=== PATIENT | female | born 1945 | race Caucasian/White ===

== ENCOUNTER 2016-10-18 23:08 | Inpatient (IN) | payer OTHER, MEDICARE ==
[2016-10-18] VITALS (8 sets, daily range): BP systolic 74–125; BP diastolic 54–82; PULSE 138–162; RESP 16–18; TEMP 97.8; O2SAT 95–99
[~2016-10-18] VITALS: Ht 170.2 cm; Wt 67.5 kg
[~2016-10-18 23:08] MED LIST: AMIT50TA3 PO; AMLO10TA2 PO; APIX2.5T PO; COMMODE 3-IN-11 MIS; CPMMACHINE; GLIP5TAB8 PO; HYDR-3288 PO; HYDR25TA5 PO; LEVO100T5 PO; MEDR2.5T2 PO; METF500T4 PO; WALKER WHEELS/F1 MIS
[2016-10-18] MEDS ORDERED: AMIODARONE 150 MG/D5W 97 ML BOLUS 10 MINUTES IV ONE ×2 (23:45)
[2016-10-18] MEDS ORDERED: AMIODARONE 450 MG/D5W (EXCEL) 241 ML IV SCH ×2 (23:45)
[2016-10-18] MEDS ORDERED: SODIUM CHLOR 0.9% 1000 ML INJ 1,000 ML IV ONE (23:51)
[2016-10-19] VITALS (46 sets, daily range): BP systolic 96–166; BP diastolic 46–83; PULSE 70–150; RESP 13–35; TEMP 97.7–98.5; O2SAT 90–100
[2016-10-19] MEDS ORDERED: SODIUM CHLORIDE 0.9% FLUSH 5 ML FLUSH IVF PRN
[2016-10-19 00:01] LABS: BASOPHIL # 0.1 TH/MM3 (0-0.2); BASOPHIL % 0.6 % (0.0-2.0); EOSINOPHIL # 0.4 TH/MM3 (0-0.4); EOSINOPHIL % 3.2 % (0.0-4.0); HEMATOCRIT 34.4 % (35.0-46.0); HEMO FLAGS DIFF FINAL; LYMPHOCYTE # 3.1 TH/MM3 (1.0-4.8); MEAN CELL VOLUME 85.4 FL (80.0-100.0); MEAN CORPUSCULAR HEMOGLOBIN 28.4 PG (27.0-34.0); MEAN CORPUSCULAR HGB CONC 33.3 % (32.0-36.0); MONO % 6.8 % (0.0-8.0); NEUT % 64.4 % (16.0-70.0); PLATELET COUNT 285 TH/MM3 (150-450); RED BLOOD COUNT 4.03 MIL/MM3 (4.00-5.30); RED CELL DISTRIBUTION WIDTH 13.6 % (11.6-17.2); WHITE BLOOD COUNT 12.4 TH/MM3 (4.0-11.0)
[2016-10-19 00:09] LABS: CHLORIDE 104 MEQ/L (98-107); POTASSIUM 3.5 MEQ/L (3.5-5.1); SODIUM (NA) 137 MEQ/L (136-145)
--- NOTE | 2016-10-19 00:09 | PD ---
HPI Chief Complaint: syncope Time Seen by Provider: 23:31 Travel History International Travel<30 days: No (unknown) Contact w/Intl Traveler<30days: No (unknown) History of Present Illness HPI 70yo F with PMH of HTN, DM presents to the ED with c/o syncope today. Pt states she was talking to her son and just passed out. Pt has been feeling episodes of warmth and dizziness. Denies any chest pain, sob, n/v, abdominal pain, weakness or numbness. PFSH Past Medical History Arthritis: Yes (JOINTS) Cancer: No Diabetes: Yes Genitourinary: No Musculoskeletal: Yes Neurologic: No Reproductive: No Respiratory: No Past Surgical History Joint Replacement: Yes (HIP) Social History Tobacco Use: No Substance Use: No Allergies-Medications (Allergen,Severity, Reaction): Coded Allergies: Morphine (Verified Allergy, Intermediate, Itching, 10/19/16) Reported Meds & Prescriptions Reported Meds & Active Scripts Active Reported Myrbetriq (Mirabegron) 25 Mg Tab 25 Mg PO DAILY Meloxicam 15 Mg Tab 15 Mg PO DAILY Enalapril (Enalapril Maleate) 20 Mg Tab 20 Mg PO DAILY Medroxyprogesterone Acetate 2.5 Mg Tab 2.5 Mg PO PRN Start day 21 Amitriptyline (Amitriptyline HCl) 50 Mg Tab 50 Mg PO HS Levothyroxine (Levothyroxine Sodium) 100 Mcg Tab 100 Mcg PO DAILY Hydrochlorothiazide 25 Mg Tab 25 Mg PO DAILY Metformin ER (Metformin HCl) 500 Mg Elan 500 Mg PO TID With evening meal Glipizide 5 Mg Tab 5 Mg PO BIDAC Take 30 minutes before a meal Amlodipine (Amlodipine Besylate) 10 Mg Tab 10 Mg PO DAILY Review of Systems Except as stated in HPI: all other systems reviewed are Neg Physical Exam Narrative GENERAL: 70yo F not in distress. SKIN: Warm and dry. HEAD: Atraumatic. Normocephalic. EYES: Pupils equal and round. No scleral icterus. No injection or drainage. ENT: No nasal bleeding or discharge. Mucous membranes pink and moist. NECK: Trachea midline. No JVD. No midline ttp cervical spine. CARDIOVASCULAR: Sinus tachycardic with frequent nonsustained Vtach in the low 200s. RESPIRATORY: No accessory muscle use. Clear to auscultation. Breath sounds equal bilaterally. GASTROINTESTINAL: Abdomen soft, non-tender, nondistended. No rebound tenderness or guarding. MUSCULOSKELETAL: No obvious deformities. No clubbing. No cyanosis. No edema. NEUROLOGICAL: Awake and alert. No obvious cranial nerve deficits. Motor grossly within normal limits. Normal speech. PSYCHIATRIC: Appropriate mood and affect; insight and judgment normal. Data Data Last Documented VS Vital Signs Date Time Temp Pulse Resp B/P Pulse Ox O2 Delivery O2 Flow Rate FiO2 10/19/16 00:45 112 18 135/63 99 Room Air 10/18/16 23:45 97.8 Orders Amiodarone Inj (Cordarone Inj) (10/18/16 23:45) Amiodarone Inj (Cordarone Inj) (10/18/16 23:45) Magnesium Sulfate 1 Gm Premix (Magnesium (10/19/16 00:00) Basic Metabolic Panel (Bmp) (10/18/16 23:51) Complete Blood Count With Diff (10/18/16 23:51) Magnesium (Mg) (10/18/16 23:51) Ckmb (Isoenzyme) Profile (10/18/16 23:51) Troponin I (10/18/16 23:51) Act Partial Throm Time (Ptt) (10/18/16 23:51) Prothrombin Time / Inr (Pt) (10/18/16 23:51) Urinalysis - C+S If Indicated (10/18/16 23:51) Chest, Single Ap (10/18/16 23:51) Ct Brain W/O Iv Contrast(Rout) (10/18/16 23:51) Ecg Monitoring (10/18/16 23:51) Iv Access Insert/Monitor (10/18/16 23:51) Oximetry (10/18/16 23:51) Sodium Chloride 0.9% Flush (Ns Flush) (10/19/16 00:00) Sodium Chlor 0.9% 1000 Ml Inj (Ns 1000 M (10/18/16 23:51) CKMB (10/18/16 23:24) CKMB% (10/18/16 23:24) Potassium Chlor 20 Meq Premix (Kcl 20 Me (10/19/16 00:45) Magnesium Sulfate 1 Gm Premix (Magnesium (10/19/16 00:45) Magnesium Sulfate 1 Gm Premix (Magnesium (10/19/16 00:45) Potassium Chloride (Kcl) (10/19/16 00:45) Admit Order (Ed Use Only) (10/19/16 00:40) Labs Laboratory Tests Test 10/18/16 23:24 White Blood Count 12.4 TH/MM3 Red Blood Count 4.03 MIL/MM3 Hemoglobin 11.4 GM/DL Hematocrit 34.4 % Mean Corpuscular Volume 85.4 FL Mean Corpuscular Hemoglobin 28.4 PG Mean Corpuscular Hemoglobin 33.3 % Concent Red Cell Distribution Width 13.6 % Platelet Count 285 TH/MM3 Mean Platelet Volume 8.6 FL Neutrophils (%) (Auto) 64.4 % Lymphocytes (%) (Auto) 25.0 % Monocytes (%) (Auto) 6.8 % Eosinophils (%) (Auto) 3.2 % Basophils (%) (Auto) 0.6 % Neutrophils # (Auto) 8.0 TH/MM3 Lymphocytes # (Auto) 3.1 TH/MM3 Monocytes # (Auto) 0.8 TH/MM3 Eosinophils # (Auto) 0.4 TH/MM3 Basophils # (Auto) 0.1 TH/MM3 CBC Comment DIFF FINAL Differential Comment Prothrombin Time 11.6 SEC Prothromb Time International 1.0 RATIO Ratio Activated Partial 25.5 SEC Thromboplast Time Sodium Level 137 MEQ/L Potassium Level 3.5 MEQ/L Chloride Level 104 MEQ/L Carbon Dioxide Level 18.8 MEQ/L Anion Gap 14 MEQ/L Blood Urea Nitrogen 17 MG/DL Creatinine 1.30 MG/DL Estimat Glomerular Filtration 41 ML/MIN Rate Random Glucose 199 MG/DL Calcium Level 8.6 MG/DL Magnesium Level 1.3 MG/DL Total Creatine Kinase 107 U/L Creatine Kinase MB 1.5 NG/ML Troponin I LESS THAN 0.02 NG/ML MDM Medical Decision Making Medical Screen Exam Complete: Yes Emergency Medical Condition: Yes Differential Diagnosis Syncope secondary to Vtach vs. other arrhythmia vs. ICH Narrative Course 70yo F with PMH of fast heart beat, HTN, DM, recent left knee replacement (no longer on eliquis) here with syncope. Pt placed on plater hot dip and found to have frequent nonsustained Vtach in the low 200s in between sinus tach at low 110s. Pt feels warm when she is in Vtach and feels better after. Discussed with Dr. Barthelomew and she agree with amiodarone drip. Initially wanted beta avinash but since pt's blood pressure went down to systolic in the 80s, we decided to go with amiodarone. Pt given amiodarone bolus and then drip and Vtach has decreased to couplets. Labs reviewed, mild leukocytosis at 12.4. H/H low at 11.4/34.4. Troponin negative. Magnesium is low at 1.3. Pt empirically given magnesium sulfate 1gm IV before lab returned and another magnesium sulfate 1gm IV ordered. Creatinine 1.3. K: 3.5, pt given IV KCl and cancelled PO KCl because pt became nauseous. Discussed with Dr. Zamora who accepted to ICU but states pt can stay at [facility]. Pt felt nauseous when she lied down to CT scan so zofran given. CT brain negative. Pt complained of pain in bilateral ischial tuberosity when she lies down after the fall so xray pelvis ordered, which is negative. Critical Care Narrative Aggregate critical care time was 60 minutes. Time to perform other separately billable procedures was not included in the critical care time. My time did not include minutes spent treating any other patients simultaneously or on activities that did not directly contribute to the patient's treatment. The services I provided to this patient were to treat and/or prevent clinically significant deterioration that could result in: cardiovascular collapse or . I provided critical care services requiring my management, as noted below: Chart data review, documentation time, medication orders and management, vital sign assessments/reviewing monitor data, ordering and reviewing lab tests, ordering and interpreting/reviewing x-rays and diagnostic studies, care of the patient and discussion of the patient with the admitting physicians. Diagnosis Primary Impression: Wide-complex tachycardia Admitting Information Admitting Physician Requests: Abby Harris DO Oct 19, 2016 00:09
[2016-10-19 00:12] LABS: ANION GAP 14 MEQ/L (5-15); BICARBONATE 18.8 MEQ/L (21.0-32.0)
[2016-10-19 00:14] LABS: APTT (PATIENT) 25.5 SEC (24.3-30.1); BLOOD UREA NITROGEN 17 MG/DL (7-18); MAGNESIUM 1.3 MG/DL (1.5-2.5); PROTHROMBIN TIME - PATIENT 11.6 SEC (9.8-11.6)
[2016-10-19 00:15] LABS: GLOMERULAR FILTRATION RATE 41 ML/MIN (>89)
[2016-10-19 00:18] LABS: CREATINE KINASE 107 U/L (26-192)
[2016-10-19 00:30] LABS: CKMB 1.5 NG/ML (0.5-3.6)
--- NOTE | 2016-10-19 00:41 | RADHPO ---
EXAM DATE/TIME: 10/19/2016 00:01 [facility] COMPARISON: No previous studies available for comparison. INDICATIONS : Syncope. MEDICAL HISTORY : None. SURGICAL HISTORY : None. ENCOUNTER: Initial ACUITY: 1 day PAIN SCORE: 0/10 LOCATION: Bilateral chest FINDINGS: Portable AP view of the chest demonstrates a normal-sized cardiac silhouette. No effusion, consolidat ion, or pneumothorax is visualized. The bones and soft tissues demonstrate no acute abnormality. Ther e is a calcified granuloma in the left upper lobe versus rib calcification. CONCLUSION: No acute cardiopulmonary abnormality is identified. Gregory Clancy MD on October 19, 2016 at 0:38 Board Certified Radiologist. This report was verified electronically.
[2016-10-19] MEDS ORDERED: MAGNESIUM SULFATE 1 GM PREMIX 100 ML IV ONE ×4 (00:45→07:15)
[2016-10-19] MEDS ORDERED: POTASSIUM CHLORIDE 20 MEQ CONTROLLED RELEASE TAB PO ONE (00:45)
[2016-10-19] MEDS ORDERED: POTASSIUM CHLOR 20 MEQ PREMIX 100 ML IV ONE (00:45)
[2016-10-19] MEDS ORDERED: ONDANSETRON HCL 4 MG/2 ML VIAL ONE (00:53)
[2016-10-19] MEDS ORDERED: ONDANSETRON HCL 4 MG/2 ML VIAL IV PUSH ONE (01:00)
--- NOTE | 2016-10-19 01:37 | RADHPO ---
EXAM DATE/TIME: 10/19/2016 00:59 [facility] COMPARISON: No previous studies available for comparison. INDICATIONS : Syncopal episode with loss of consciousness. RADIATION DOSE: 56.71 CTDIvol (mGy) MEDICAL HISTORY : Hypertension. Diabetes. SURGICAL HISTORY : None. ENCOUNTER: Initial ACUITY: 1 day PAIN SCALE: 6/10 LOCATION: cranial TECHNIQUE: Multiple contiguous axial images were obtained of the head. Using automated exposure control and adj ustment of the mA and/or kV according to patient size, radiation dose was kept as low as reasonably a chievable to obtain optimal diagnostic quality images. FINDINGS: CEREBRUM: The ventricles are normal in size. No evidence of midline shift, mass lesion, hemorrhage or acute in farction. No extra-axial fluid collections are seen. POSTERIOR FOSSA: The cerebellum and brainstem demonstrate no abnormality. The 4th ventricle is midline. The cerebell opontine angle is unremarkable. EXTRACRANIAL: There is an air-fluid level there are maxillary sinus. SKULL: The calvaria is intact. No evidence of skull fracture. CONCLUSION: 1. No acute intracranial abnormality is identified. 2. Air-fluid level in the right maxillary sinus. This could indicate acute sinus disease. Gregory Clancy MD on October 19, 2016 at 1:34 Board Certified Radiologist. This report was verified electronically.
[2016-10-19] MEDS ORDERED: MELO-1 PO (02:06)
[2016-10-19] MEDS ORDERED: ENAL20TA PO (02:06)
[2016-10-19] MEDS ORDERED: MIRA25TA PO (02:06)
--- NOTE | 2016-10-19 03:21 | RADHPO ---
EXAM DATE/TIME: 10/19/2016 02:50 [facility] COMPARISON: No previous studies available for comparison. INDICATIONS : Pelvic pain post fall. MEDICAL HISTORY : Hypertension. Diabetes SURGICAL HISTORY : None. ENCOUNTER: Initial ACUITY: 1 day PAIN SCORE: 4/10 LOCATION: Bilateral pelvis FINDINGS: AP view of the pelvis demonstrates undermineralized bones. No fracture or dislocation is identified. There is right hip hardware related to total hip arthroplasty. No hardware failure is appreciated. Th ere is mild sclerosis adjacent to the inferior right sacroiliac joint. There is degenerative disc dis ease at L4-L5 and L5-S1. CONCLUSION: No acute pelvis abnormality is identified. The bones are undermineralized. There is degenerative disc disease in the in inferior lumbar spine. Gregory Clancy MD on October 19, 2016 at 3:18 Board Certified Radiologist. This report was verified electronically.
[2016-10-19 03:39] LABS: GLUCOSE,URINE 250 mg/dL (NEG); KETONE, URINE 15 mg/dL (NEG); NITRITE,URINE NEG (NEG); PH, URINE 5.5 (5.0-8.5)
[2016-10-19 03:48] LABS: BLOOD, URINE MOD (NEG); URINE COLOR YELLOW (YELLW/STRAW); WBC, URINE 0-2 /hpf (0-5)
[2016-10-19 03:49] LABS: COMMENT (UR) CULT NOT INDICATED; CULTURE IF INDICATED CULT NOT INDICATED; SQUAMOUS EPITHELIAL CELL URINE 0-5 /hpf (0-5)
[2016-10-19] MEDS ORDERED: SODIUM CHLORIDE 0.9% FLUSH 5 ML FLUSH IV FLUSH PRN ×2 (05:15→07:15)
[2016-10-19] MEDS ORDERED: ONDANSETRON HCL 4 MG/2 ML VIAL IV PRN ×2 (05:15→07:15)
[2016-10-19] MEDS ORDERED: MISCELLANEOUS NURSING INFORMATION XX SCH ×2 (05:15→07:15)
[2016-10-19] MEDS ORDERED: ACETAMINOPHEN 325 MG TAB PO PRN ×2 (05:15→07:15)
[2016-10-19] MEDS ORDERED: CHLORHEXIDINE GLUCONATE 2 % 1 PACK (2 CLOTHS) TOP PRN ×2 (05:15→07:15)
[2016-10-19] MEDS ORDERED: RESP: ALBUTEROL 2.5 MG/3 ML NEB (PRN) INH (05:15)
[2016-10-19] MEDS: CHLORHEXIDINE GLUCONATE 2 % 1 PACK (2 CLOTHS) TOP SCH (06:09)
[2016-10-19 06:17] LABS: POTASSIUM 3.8 MEQ/L (3.5-5.1)
[2016-10-19 06:21] LABS: BICARBONATE 20.7 MEQ/L (21.0-32.0)
[2016-10-19 06:28] LABS: MAGNESIUM 2.1 MG/DL (1.5-2.5)
--- NOTE | 2016-10-19 07:02 | HHI.HP ---
[facility] Service Critical Care Medicine Primary Care Physician Non-Staff Admission Diagnosis Syncope secondary to arrhythmia, nonsustained Vtach, hypomagnesemia Diagnosis: (1) Wide-complex tachycardia Diagnosis: Principal (2) Low magnesium level Diagnosis: Principal (3) Leukocytosis Diagnosis: Principal (4) Normocytic anemia Diagnosis: Principal (5) Diabetes mellitus Diagnosis: Principal (6) Hard of hearing Diagnosis: Principal (7) Dyslipidemia Diagnosis: Principal (8) Hypothyroidism Diagnosis: Principal (9) OAB (overactive bladder) Diagnosis: Principal (10) Primary localized osteoarthrosis, lower leg Diagnosis: Principal Chief Complaint: Syncope/passed out feeling warm. Third to fourth episode to occur. Travel History International Travel<30 Days: No Contact w/Intl Traveler <30 Da: No Traveled to Known Affected Are: No History of Present Illness 70yo F. Admission 10/19/2016. Past medical history includes tachycardia, HTN, DM, hypothyroidism, depression, osteoarthritis with recent left knee replacement (no longer on eliquis) presents to [facility] ED this is a third fourth episode for this patient where she becomes "flush" and feels that the world is spinning. Upon arrival she was instructed to cardiac monitor technician and was noted to have a white count was tachycardia with a rate in the low 200s in between sinus tach at low 110s. Pt feels warm when she is in Vtach and feels better after once back in sinus tachycardia. Discussed with Dr. Tapia and she agree with amiodarone drip. Pt given amiodarone bolus and then drip and Vtach has decreased to couplets she was noted to have a leukocytosis of 12,000. Anemia 11. Magnesium 1.2. Potassium is slightly low. TSH pending. These all been replaced and have normalized. She was intermittently in a wide complex tachycardia from 2300 until 0200. She has since been in normal sinus rhythm. Denies any chest pain, shortness of breath. Review of Systems Constitutional: COMPLAINS OF: Fatigue, DENIES: Fever, Weight gain, Weight loss Endocrine: DENIES: Abnorml menstrual pattern Eyes: COMPLAINS OF: Blurred vision, Double Vision, DENIES: Eye pain Ears, nose, mouth, throat: DENIES: Tinnitus Respiratory: DENIES: Apneas, Snoring, Shortness of breath Cardiovascular: COMPLAINS OF: Palpitations, Syncope, DENIES: Chest pain, Claudication Gastrointestinal: DENIES: Abdominal pain, Nausea, Vomiting Genitourinary: COMPLAINS OF: Urinary incontinence, DENIES: Urinary frequency Musculoskeletal: COMPLAINS OF: Joint pain Integumentary: DENIES: Rash Hematologic/lymphatic: DENIES: Bruising Immunologic/allergic: DENIES: Eczema Neurologic: DENIES: Abnormal gait Psychiatric: COMPLAINS OF: Anxiety, DENIES: Confusion Past Family Social History Allergies: Coded Allergies: Morphine (Verified Allergy, Intermediate, Itching, 10/19/16) Past Medical History Hard of hearing Depression/anxiety Hypertension Dyslipidemia Osteoarthritis Diabetes mellitus type 2 Hypothyroidism Overactive bladder Past Surgical History Cholecystectomy Right total hip replacement Left total knee replacement Lumbar surgery 2002 and 2006 Reported Medications Active Walker with Front Wheels (Device) 1 Mis Mis 1 Ea .ROUTE DIRECTED Commode 3-in-1 (Device) 1 Mis Mis 1 Ea .ROUTE DIRECTED CPM-Continuous Passive Motion Machine 1 Ea Device 1 Ea .ROUTE DIRECTED Eliquis (Apixaban) 2.5 Mg Tab 2.5 Mg PO BID Eldridge (Hydrocodone-Acetaminophen) 7.5-325 mg Tab 1-2 Tab PO Q6H PRN Reported Medroxyprogesterone Acetate 2.5 Mg Tab 2.5 Mg PO PRN Start day 21 Amitriptyline (Amitriptyline HCl) 50 Mg Tab 50 Mg PO HS Levothyroxine (Levothyroxine Sodium) 100 Mcg Tab 100 Mcg PO DAILY Hydrochlorothiazide 25 Mg Tab 25 Mg PO DAILY Metformin ER (Metformin HCl) 500 Mg Elan 500 Mg PO TID With evening meal Glipizide 5 Mg Tab 5 Mg PO BIDAC Take 30 minutes before a meal Amlodipine (Amlodipine Besylate) 10 Mg Tab 10 Mg PO DAILY Active Ordered Medications Reviewed in EMR Family History Mother and father is noncontributory. Social History Former 1 pack per day tobacco 30 years. Currently uses E cigarettes One glass of wine 2-3 times a week. No IV drug use. Physical Exam Vital Signs Vital Signs Date Time Temp Pulse Resp B/P Pulse Ox O2 Delivery O2 Flow Rate FiO2 10/19/16 05:35 74 23 166/71 98 10/19/16 05:24 76 32 158/79 97 10/19/16 05:22 76 35 160/73 10/19/16 05:05 78 23 141/66 97 10/19/16 04:30 78 18 135/62 97 Room Air 10/19/16 04:00 78 16 145/66 96 Nasal Cannula 2 10/19/16 03:30 86 18 145/72 98 Nasal Cannula 2 10/19/16 03:00 98.1 95 16 127/65 97 Nasal Cannula 10/19/16 02:45 118 20 104/54 95 Nasal Cannula 2 10/19/16 02:40 90 Nasal Cannula 2 10/19/16 02:30 128 18 132/58 95 Room Air 10/19/16 02:15 138 18 141/68 97 Room Air 10/19/16 02:00 128 18 108/83 97 Room Air 10/19/16 01:45 124 18 115/56 95 Room Air 10/19/16 01:25 146 20 131/71 95 Room Air 10/19/16 01:15 136 18 113/58 97 Room Air 10/19/16 01:10 142 18 137/75 96 Room Air 10/19/16 00:55 150 18 122/79 98 Room Air 10/19/16 00:45 112 18 135/63 99 Room Air 10/19/16 00:40 122 18 117/46 100 Room Air 10/19/16 00:30 126 18 139/57 100 Room Air 10/19/16 00:20 116 18 96/65 98 Room Air 10/19/16 00:15 112 18 135/67 99 Room Air 10/19/16 00:10 114 18 119/52 99 Room Air 10/19/16 00:05 110 18 127/63 100 Room Air 10/19/16 00:00 120 18 119/68 99 Room Air 10/18/16 23:55 138 18 110/82 98 Room Air 10/18/16 23:50 152 18 92/59 99 Room Air 10/18/16 23:45 97.8 144 16 90/54 99 Room Air 10/18/16 23:40 150 18 74/57 99 Room Air 10/18/16 23:35 162 18 86/64 95 Room Air 10/18/16 23:30 18 98 Room Air 10/18/16 23:30 99 Room Air 10/18/16 23:25 154 18 112/55 96 Room Air 10/18/16 23:10 97.8 150 18 125/72 96 Room Air Physical Exam GENERAL: 70-year-old female, resting in bed in no acute distress SKIN: Warm and dry. No rash HEAD: Atraumatic. Normocephalic. EYES: Pupils equal and round. No scleral icterus. No injection or drainage. ENT: No nasal bleeding or discharge. Mucous membranes pink and moist. NECK: Trachea midline. No JVD. CARDIOVASCULAR: Regular rate and rhythm. S1, S2. No S4 without murmur RESPIRATORY: Clear to auscultation. Breath sounds equal bilaterally. GASTROINTESTINAL: Abdomen soft, non-tender, nondistended. Hypoactive bowel sounds MUSCULOSKELETAL: Extremities without significant peripheral edema. No obvious deformities. NEUROLOGICAL: Awake and alert. No obvious cranial nerve deficits. Motor grossly within normal limits. Five out of 5 muscle strength in the arms and legs. Normal speech. PSYCHIATRIC: Appropriate mood and affect; insight and judgment normal. Laboratory Laboratory Tests Test 10/18/16 10/19/16 10/19/16 23:24 03:25 05:43 White Blood Count 12.4 Red Blood Count 4.03 Hemoglobin 11.4 Hematocrit 34.4 Mean Corpuscular Volume 85.4 Mean Corpuscular Hemoglobin 28.4 Mean Corpuscular Hemoglobin 33.3 Concent Red Cell Distribution Width 13.6 Platelet Count 285 Mean Platelet Volume 8.6 Neutrophils (%) (Auto) 64.4 Lymphocytes (%) (Auto) 25.0 Monocytes (%) (Auto) 6.8 Eosinophils (%) (Auto) 3.2 Basophils (%) (Auto) 0.6 Neutrophils # (Auto) 8.0 Lymphocytes # (Auto) 3.1 Monocytes # (Auto) 0.8 Eosinophils # (Auto) 0.4 Basophils # (Auto) 0.1 CBC Comment DIFF FINAL Differential Comment Prothrombin Time 11.6 Prothromb Time International 1.0 Ratio Activated Partial 25.5 Thromboplast Time Sodium Level 137 138 Potassium Level 3.5 3.8 Chloride Level 104 106 Carbon Dioxide Level 18.8 20.7 Anion Gap 14 11 Blood Urea Nitrogen 17 15 Creatinine 1.30 1.20 Estimat Glomerular Filtration 41 45 Rate Random Glucose 199 255 Calcium Level 8.6 8.1 Magnesium Level 1.3 2.1 Total Creatine Kinase 107 Creatine Kinase MB 1.5 Troponin I LESS THAN 0.02 LESS THAN 0.02 Urine Color YELLOW Urine Turbidity CLEAR Urine pH 5.5 Urine Specific Mcintyre 1.009 Urine Protein NEG Urine Glucose (UA) 250 Urine Ketones 15 Urine Occult Blood MOD Urine Nitrite NEG Urine Bilirubin NEG Urine Leukocyte Esterase NEG Urine RBC 3-5 Urine WBC 0-2 Urine Squamous Epithelial 0-5 Cells Urine Bacteria NONE Microscopic Urinalysis Comment CULT NOT INDICATED Phosphorus Level 3.2 Result Diagram: 10/18/16 2324 10/19/16 0543 Imaging Last Impressions Pelvis X-Ray 10/19/16 0000 Signed Impressions: Service Date/Time: Wednesday, October 19, 2016 02:50 - CONCLUSION: No acute pelvis abnormality is identified. The bones are undermineralized. There is degenerative disc disease in the in inferior lumbar spine. Gregory Clancy MD Head CT 10/18/16 2351 Signed Impressions: Service Date/Time: Wednesday, October 19, 2016 00:59 - CONCLUSION: 1. No acute intracranial abnormality is identified. 2. Air-fluid level in the right maxillary sinus. This could indicate acute sinus disease. Gregory Clancy MD Chest X-Ray 10/18/162350 Signed Impressions: Service Date/Time: Wednesday, October 19, 2016 00:01 - CONCLUSION: No acute cardiopulmonary abnormality is identified. Gregory Calncy MD Assessment and Plan Assessment and Plan Neuro/Psych: Depression/anxiety Hard of hearing Resume Elavil at 20 mg at night. Acetaminophen for fever/pain as needed She is on Lovenox 50 mg daily at home. This be held. CV: Wide complex tachycardia History of hypertension Dyslipidemia Currently on amiodarone drip after bolus has been performed. Troponin 0.02. 2-D echocardiogram ordered. Goal to Keep potassium greater than 4, magnesium greater than 2. Resume enalapril 20 mg by mouth daily and Norvasc/10 mg daily home dosage As needed Nitropaste labetalol/hydralazine for hypertension. Holding hydrochlorothiazide in light of the lateral abnormality's. Cardiology consulted. Resp: Tobaccoism Nasal cannula to maintain saturations greater than equal to 92% Incentive spirometry while awake As needed bronchodilator therapy Chest x-ray on admission revealed no acute cardiopulmonary findings Currently uses E cigarettes Previously on simvastatin 40 mg by mouth daily. Medication reconciliation GI: Start ADA diet. Pepcid for GI prophylaxis Colace/as needed Senokot for bowel regimen : Gardner for accurate I's and O's in a critically ill patient if indicated Endo: Diabetes mellitus Hypothyroidism Continue Levoxyl at 100 g by mouth daily. Check TSH Sliding-scale insulin with Accu-Cheks before meals/at bedtime to maintain euglycemia. Low regimen. Holding glipizide 5 mg by mouth daily/home medication Renal: Acute kidney injury Creatinine currently 1.2. Monitor urine output closely. Accurate I/o Recheck BMP in a.m. Heme: Leukocytosis Normocytic anemia Monitor CBC daily. Monitor trends ID: Monitor for infection FEN: Hypo-magnesium Hypopotassemia Received 30 mg KCl by mouth and 1 g mag sulfate IV 1. Recheck this afternoon. MSK: Osteoarthritis OOB/PT evaluate and treat Access - Utilize peripheral IV. Central line if indicated Prophylaxis - GI - Pepcid - DVT - SCD/heparin Critical Care: The total critical care time was 65 minutes. Time to perform other separately billable procedures was not included in the critical care time. 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
[2016-10-19] MEDS ORDERED: AMIODARONE 450 MG/D5W (EXCEL) 241 ML IV SCH ×2 (07:11)
[2016-10-19] MEDS ORDERED: HEPARIN SODIUM - SQ 10,000 UNITS/ML VIAL SQ SCH ×2 (07:15→08:00)
[2016-10-19] MEDS ORDERED: AMIODARONE INJ 900 MG in D5W 500 ML (EXCEL BAG) 482 ML IV SCH (07:15)
[2016-10-19] MEDS ORDERED: DEXTROSE 50% IN WATER 50 ML VIAL(D50) IV PUSH PRN (07:15)
[2016-10-19] MEDS ORDERED: RESP: ALBUTEROL 2.5 MG/IPRATROPIUM 0.5 MG NEB (PRN) INH (07:15)
[2016-10-19] MEDS ORDERED: POTASSIUM CHLORIDE 10 MEQ CONTROLLED RELEASE TAB PO ONE (07:15)
[2016-10-19] MEDS ORDERED: SENNOSIDES 8.6 MG TAB PO PRN (07:15)
[2016-10-19] MEDS ORDERED: GLUCAGON 1 MG/ML VIAL OTHER PRN (07:15)
[2016-10-19] MEDS ORDERED: NITROGLYCERIN 2% OINT 1 GM PACKET TOPICAL PRN (07:45)
[2016-10-19] MEDS ORDERED: LABETALOL HCL 100 MG/20 ML VIAL IV PUSH PRN (07:45)
[2016-10-19] MEDS ORDERED: hydrALAZINE HCL 20 MG/ML VIAL IV PUSH PRN (07:45)
[2016-10-19] MEDS ORDERED: MIDAZOLAM 100 MG/ML INJ 100 ML IV SCH (08:00)
[2016-10-19] MEDS: ENALAPRIL MALEATE 10 MG TAB PO SCH ×2 (08:18→23:57)
[2016-10-19] MEDS: PANTOPRAZOLE SODIUM 40 MG VIAL IV SCH (08:19)
[2016-10-19] MEDS: DOCUSATE SODIUM 100 MG CAP PO SCH ×2 (08:19→21:00)
[2016-10-19] MEDS: SODIUM CHLORIDE 0.9% FLUSH 5 ML FLUSH IV FLUSH SCH ×2 (08:19→22:47)
[2016-10-19] MEDS: FAMOTIDINE 20 MG TAB PO SCH ×2 (08:19→22:47)
[2016-10-19] MEDS: LEVOTHYROXINE SODIUM 100 MCG TAB PO SCH (08:19)
[2016-10-19] MEDS ORDERED: MIRABEGRON 25 MG PO SCH (09:00)
[2016-10-19] MEDS ORDERED: SODIUM CHLORIDE 0.9% FLUSH 5 ML FLUSH IV FLUSH SCH (09:00)
[2016-10-19] MEDS: INSULIN NovoLIN REGULAR SUPPLEMENTAL SCALE SQ SCH ×3 (11:33→21:00)
--- NOTE | 2016-10-19 13:03 | RADHPO ---
EXAM DATE/TIME: 10/19/2016 12:13 [facility] COMPARISON: No previous studies available for comparison. INDICATIONS : Syncope. MEDICAL HISTORY : Hypertension. Blurred vision. Hearing loss. Palpitations. Irregular heartbeat. Incontinence. Arth ritis. Diabetes. Anxiety. SURGICAL HISTORY : Cholecystectomy. Left knee surgery. Right hip replacement. Back surgery x 2. ENCOUNTER: Initial ACUITY: 1 day PAIN SCORE: 3/10 LOCATION: Bilateral neck PEAK SYSTOLIC VELOCITIES (cm/sec): ICA/CCA RATIO: Right: 1.7 Left: 1.2 ICA: Right: 128 Left: 96 CCA: Right: 57 Left: 79 ECA: Right: 92 Left: 91 VERTEBRAL: Right: 53 antegrade Left: 63 antegrade Elevated flow velocities and ICA/CCA ratios have been found to correlate with increased degrees of vessel stenosis, calculated as percentage of diameter relative to a normal segment of distal ICA/CCA FINDINGS: RIGHT CAROTID: No significant stenosis is visualized. Moderate plaque. The waveforms are within normal limits. LEFT CAROTID: No significant stenosis is visualized. Moderate plaque. The waveforms are within normal limits. VERTEBRAL ARTERIES: Antegrade flow is seen in both vertebral arteries. MISCELLANEOUS: None. CONCLUSION: There is an approximate 50-60% stenosis of the right internal carotid. No hemodynamically significant stenosis in left carotid artery. Jose Pedraza MD on October 19, 2016 at 13:01 Board Certified Radiologist. This report was verified electronically.
[2016-10-19 13:30] LABS: ALT (GPT) 20 U/L (10-53); AST (GOT) 17 U/L (15-37)
[2016-10-19 13:32] LABS: INDIRECT BILIRUBIN 0.2 MG/DL (0.0-0.8); TOTAL BILIRUBIN ADULT 0.3 MG/DL (0.2-1.0)
[2016-10-19 13:33] LABS: ALKALINE PHOSPHATASE 90 U/L (45-117); CREATINE KINASE 165 U/L (26-192)
[2016-10-19] MEDS ORDERED: diphenhydrAMINE HCL 50 MG/ML VIAL IV SCH (14:30)
[2016-10-19 15:01] LABS: HEMATOCRIT 34.4 % (35.0-46.0); MEAN CELL VOLUME 86.1 FL (80.0-100.0); MEAN CORPUSCULAR HEMOGLOBIN 29.1 PG (27.0-34.0); MEAN CORPUSCULAR HGB CONC 33.8 % (32.0-36.0); PLATELET COUNT 266 TH/MM3 (150-450); RED BLOOD COUNT 3.99 MIL/MM3 (4.00-5.30); RED CELL DISTRIBUTION WIDTH 13.4 % (11.6-17.2); REVIEW FLAG FINAL; WHITE BLOOD COUNT 11.6 TH/MM3 (4.0-11.0)
[2016-10-19 15:18] LABS: APTT (PATIENT) 26.1 SEC (24.3-30.1); PROTHROMBIN TIME - PATIENT 11.4 SEC (9.8-11.6)
[2016-10-19] MEDS: HEPARIN-D5W INJ 250 ML IV SCH (15:31)
[2016-10-19] MEDS: ASPIRIN 325 MG TAB PO SCH (15:34)
--- NOTE | 2016-10-19 15:39 | MB ---
cc: MELISSA BRODERICK MD DATE OF CONSULTATION: 10/19/2016 REASON FOR CONSULTATION VT and syncope. HISTORY OF PRESENT ILLNESS Ms. Berman is a 70-year-old female who does have a history of diabetes. She is somewhat of a poor historian. But with clarification of her son, she has had multiple episodes of weakness and dizziness with exertion since her surgery. This has progressed to the point now of near syncope. Over the last day or so she had at least three episodes of near-syncope and vomiting on exertion. In the emergency room she was noted to have a wide complex tachycardia most consistent with ventricular tachycardia. The patient has been asymptomatic since her hospitalization. She specifically denies any chest pain or shortness of breath. PAST MEDICAL HISTORY Significant for - 1. Hypertension. 2. Hyperlipidemia. 3. Diabetes. 4. Hypothyroidism. 5. Depression. 6. Hard of hearing. PAST SURGICAL HISTORY 1. Cholecystectomy. 2. Right total hip. 3. Left total knee. 4. Lumbar surgery. SOCIAL HISTORY The patient is a former smoker. MEDICATIONS Her outpatient medications include - 1. Eliquis. 2. [place]. 3. Medroxyprogesterone. 4. Amitriptyline. 5. Levothyroxine. 6. Hydrochlorothiazide. 7. Metformin. 8. Glipizide. 9. Amlodipine. FAMILY HISTORY Noncontributory. SOCIAL HISTORY The patient is a former smoker. She occasionally has alcohol. REVIEW OF SYSTEMS Except as mentioned in HPI, all 12 systems are negative. PHYSICAL EXAMINATION VITAL SIGNS: 98.2, 72, 27, 144/64. GENERAL: She is a well-appearing elderly female who is in no apparent distress. NECK: Her neck is free from JVD. LUNGS: The lungs are bilaterally clear to auscultation. CARDIOVASCULAR: She has a normal S1 and S2. I did not appreciate any murmurs, rubs or gallops. ABDOMEN: The abdomen is soft. EXTREMITIES: The extremities are free from edema. Telemetry shows an episode of wide complex tachycardia at 180 beats a minute. LABORATORY VALUES Significant for serial troponins of less than 0.02/0.02. Her creatinine is 1.2 and the hemoglobin is 11.4. EKG shows normal sinus rhythm with nonspecific ST-T wave changes. IMPRESSION V-tach - The patient certainly has multiple cardiovascular risk factors. She is somewhat of a poor historian but her son basically describes weakness that correlates to V-tach with walking. While this did not happen every time she ambulated, it certainly seemed to be correlating and is less concerning for ischemia or an anginal equivalent. In light of this, I am going to start her on heparin. We will continue the amiodarone. The risks, benefits and alternatives to cardiac catheterization were discussed. We will have her transferred to the main hospital for this. She will be at slightly higher risk given her anemia and mild renal insufficiency. Hypertension - The patient's blood pressure is reasonably controlled with her present medications. I will add low-dose beta avinash. Hyperlipidemia - We will check lipids and start her on a statin. Diabetes - This is being managed by the primary team. Melissa Broderick M.D. AJITH/BJF /2:17 PM /3:20 PM ANT
[2016-10-19] MEDS ORDERED: HEPARIN SODIUM - IV 10,000 UNITS/10 ML VIAL IV PRN ×2 (20:45)
[2016-10-19 22:31] LABS: APTT (PATIENT) 30.2 SEC (24.3-30.1)
[2016-10-19] MEDS: ATORVASTATIN 40 MG TAB PO SCH (22:47)
[2016-10-19] MEDS: METOPROLOL TARTRATE 25 MG TAB PO SCH (22:48)
[2016-10-19] MEDS: AMITRIPTYLINE HCL 50 MG TAB PO SCH (23:57)
[2016-10-20] VITALS (22 sets, daily range): BP systolic 107–161; BP diastolic 52–84; PULSE 51–98; RESP 16–18; TEMP 97.4–98.5; O2SAT 97–99
[2016-10-20] MEDS ORDERED: CHLORHEXIDINE GLUCONATE 2 % 1 PACK (2 CLOTHS) TOP SCH (04:00)
[2016-10-20] MEDS: LEVOTHYROXINE SODIUM 100 MCG TAB PO SCH (06:00)
[2016-10-20 06:25] LABS: AUTOMATED NEUTROPHIL # 4.2 TH/MM3 (1.8-7.7); BASOPHIL # 0.1 TH/MM3 (0-0.2); BASOPHIL % 0.8 % (0.0-2.0); EOSINOPHIL # 0.3 TH/MM3 (0-0.4); HEMATOCRIT 30.1 % (35.0-46.0); HEMO FLAGS DIFF FINAL; LYMPH % 30.2 % (9.0-44.0); LYMPHOCYTE # 2.2 TH/MM3 (1.0-4.8); MEAN CELL VOLUME 85.7 FL (80.0-100.0); MEAN CORPUSCULAR HEMOGLOBIN 28.8 PG (27.0-34.0); MEAN CORPUSCULAR HGB CONC 33.6 % (32.0-36.0); MONO % 7.2 % (0.0-8.0); NEUT % 57.8 % (16.0-70.0); PLATELET COUNT 236 TH/MM3 (150-450); RED BLOOD COUNT 3.51 MIL/MM3 (4.00-5.30); RED CELL DISTRIBUTION WIDTH 14.7 % (11.6-17.2); WHITE BLOOD COUNT 7.2 TH/MM3 (4.0-11.0)
[2016-10-20 06:42] LABS: INTERNATIONAL NORMALIZED RATIO 1.1 RATIO; PROTHROMBIN TIME - PATIENT 11.9 SEC (9.8-11.6)
[2016-10-20 06:43] LABS: MAGNESIUM 1.9 MG/DL (1.5-2.5)
[2016-10-20] MEDS: INSULIN NovoLIN REGULAR SUPPLEMENTAL SCALE SQ SCH ×4 (07:00→21:00)
[2016-10-20 07:06] LABS: APTT (PATIENT) 55.6 SEC (24.3-30.1)
[2016-10-20] MEDS: FAMOTIDINE 20 MG TAB PO SCH ×2 (09:49→21:09)
[2016-10-20] MEDS: METOPROLOL TARTRATE 25 MG TAB PO SCH ×2 (09:49→21:08)
[2016-10-20] MEDS: ASPIRIN 325 MG TAB PO SCH (09:50)
[2016-10-20] MEDS: SODIUM CHLORIDE 0.9% FLUSH 5 ML FLUSH IV FLUSH SCH ×2 (09:50→21:00)
[2016-10-20] MEDS: PANTOPRAZOLE SODIUM 40 MG VIAL IV SCH (09:51)
[2016-10-20] MEDS: DOCUSATE SODIUM 100 MG CAP PO SCH ×2 (09:51→21:08)
[2016-10-20] MEDS: ACETAMINOPHEN/HYDROcodone 325 MG/7.5 MG TAB PO PRN ×3 (09:53→19:50)
[2016-10-20] MEDS: SODIUM CHLOR 0.9% 1000 ML INJ 1,000 ML IV SCH (11:00)
--- NOTE | 2016-10-20 12:05 | PD.CARD.PN ---
Subjective Subjective Remarks PT without CV complaints Objective Medications Current Medications Medications (Trade) Dose Ordered Sig/Ron Route Start Time Stop Time Status Last Admin (NS Flush) 2 ml UNSCH PRN IV FLUSH 10/19/16 05:15 (NS Flush) 2 ml BID IV FLUSH 10/19/16 09:00 10/20/16 09:50 (Tylenol) 650 mg Q6H PRN PO 10/19/16 05:15 10/19/16 06:08 (Protonix Inj) 40 mg DAILY IV 10/19/16 09:00 10/20/16 09:51 (Zofran Inj) 4 mg Q6H PRN IV 10/19/16 05:15 Miscellaneous Information 1 Q361D XX 10/19/16 05:15 10/19/16 05:15 (Chlorhexidine 2% Cloth) 3 pack Taper DAILY@04 TOP 10/20/16 04:00 10/16/17 03:59 10/19/16 06:09 (Chlorhexidine 2% Cloth) 3 pack UNSCH PRN TOP 10/19/16 05:15 (Elavil) 50 mg HS PO 10/19/16 21:00 10/19/16 23:57 (Norvasc) 10 mg DAILY PO 10/19/16 09:00 10/20/16 09:49 (Synthroid) 100 mcg DAILY@06 PO 10/19/16 07:30 10/20/16 06:00 Patient Own Medication PT OWN MED: (Mirabeg... DAILY PO 10/19/16 09:00 Hold (D50w (Vial) Inj) 25 ml UNSCH PRN IV PUSH 10/19/16 07:15 (Glucagon Inj) 1 mg UNSCH PRN OTHER 10/19/16 07:15 (Colace) 100 mg BID PO 10/19/16 09:00 10/20/16 09:51 (Senokot) 17.2 mg Q12H PRN PO 10/19/16 07:15 (Vasotec) 10 mg BID PO 10/19/16 09:00 10/19/16 23:57 (Trandate Inj) 5 mg Q1HR PRN IV PUSH 10/19/16 07:45 10/19/16 18:07 (Nitroglycerin 2% Oint) 2 inch Q6HR PRN TOPICAL 10/19/16 07:45 Hydralazine HCl 10 mg 10 mg Q1HR PRN IV PUSH 10/19/16 07:45 (NS 1000 ml Inj) 1,000 ml @ 50 mls/hr Q20H IV 10/19/16 15:00 10/24/16 14:59 (Lipitor) 80 mg HS PO 10/19/16 21:00 10/19/16 22:47 (Aspirin) 325 mg DAILY PO 10/19/16 14:30 10/20/16 09:50 (Lopressor) 25 mg Q12HR PO 10/19/16 21:00 10/20/16 09:49 (Heparin Inj) 5,000 units UNSCH PRN IV 10/19/16 20:45 Heparin Sodium (Porcine) 2500 units 2,500 units UNSCH PRN IV 10/19/16 20:45 10/20/16 00:00 (Heparin-D5W Inj) 250 ml @ 0 mls/hr TITRATE IV 10/19/16 14:45 10/19/16 15:31 ([place] 7.5-325 Mg) 1 tab Q4H PRN PO 10/20/16 01:15 10/20/16 09:53 (Pepcid) 10 mg Q12HR PO 10/20/16 21:00 Vital Signs / I&O Vital Signs Date Time Temp Pulse Resp B/P Pulse Ox O2 Delivery O2 Flow Rate FiO2 10/20/16 10:39 97 21 10/20/16 10:00 58 10/20/16 09:00 62 10/20/16 08:00 52 10/20/16 07:00 55 10/20/16 07:00 97.4 57 17 107/52 98 10/20/16 05:31 98.3 60 16 127/55 99 10/20/16 05:27 57 10/20/16 04:00 57 10/20/16 03:00 57 10/20/16 02:00 57 10/20/16 01:00 61 10/20/16 00:25 98.1 63 16 161/73 98 10/19/16 23:00 77 10/19/16 22:00 73 10/19/16 21:00 78 10/19/16 20:00 97.7 74 16 145/79 99 10/19/16 20:00 74 10/19/16 19:00 74 10/19/16 17:00 76 24 10/19/16 16:02 82 29 143/78 97 10/19/16 16:02 82 10/19/16 15:00 82 29 143/78 10/19/16 14:00 78 30 145/66 10/19/16 14:00 78 10/19/16 13:00 74 28 136/63 10/19/16 12:07 98.2 72 27 144/64 96 I/O 10/19/16 10/19/16 10/19/16 10/20/16 10/20/16 10/20/16 07:00 15:00 23:00 07:00 15:00 23:00 Intake Total 1200 ml 910 ml 240 ml 780 ml Output Total 1000 ml 1800 ml Balance 200 ml -890 ml 240 ml 780 ml Intake Oral 480 ml 240 ml 480 ml IV Total 1200 ml 430 ml 300 ml Output Urine Total 1000 ml 1800 ml Stool Total 0 ml # Voids 1 1 3 # Bowel Movements 1 0 Physical Exam GENERAL: Well developed, well nourished. No acute distress. HEENT: Jugular venous pressure is normal. CHEST: Lungs clear to auscultation bilaterally. Unlabored respiratory effort. CARDIAC: Regular rate and rhythm without S3, S4, or murmur. ABDOMEN: Soft, nontender, no hepatosplenomegaly. Bowel sounds present. EXTREMITIES: No clubbing, cyanosis, or edema. Laboratory Laboratory Tests Test 10/19/16 10/19/16 10/19/16 10/20/16 12:57 14:46 22:11 05:35 Magnesium Level 2.2 MG/DL 1.9 MG/DL Total Bilirubin 0.3 MG/DL Direct Bilirubin 0.1 MG/DL Indirect Bilirubin 0.2 MG/DL Aspartate Amino Transf 17 U/L (AST/SGOT) Alanine Aminotransferase 20 U/L (ALT/SGPT) Alkaline Phosphatase 90 U/L Total Creatine Kinase 165 U/L Troponin I LESS THAN 0.02 NG/ML Total Protein 6.4 GM/DL Albumin 2.9 GM/DL White Blood Count 11.6 TH/MM3 7.2 TH/MM3 Red Blood Count 3.99 MIL/MM3 3.51 MIL/MM3 Hemoglobin 11.6 GM/DL 10.1 GM/DL Hematocrit 34.4 % 30.1 % Mean Corpuscular Volume 86.1 FL 85.7 FL Mean Corpuscular Hemoglobin 29.1 PG 28.8 PG Mean Corpuscular Hemoglobin 33.8 % 33.6 % Concent Red Cell Distribution Width 13.4 % 14.7 % Platelet Count 266 TH/MM3 236 TH/MM3 Mean Platelet Volume 8.2 FL 8.4 FL Prothrombin Time 11.4 SEC 11.9 SEC Prothromb Time International 1.0 RATIO 1.1 RATIO Ratio Activated Partial 26.1 SEC 30.2 SEC 55.6 SEC Thromboplast Time Neutrophils (%) (Auto) 57.8 % Lymphocytes (%) (Auto) 30.2 % Monocytes (%) (Auto) 7.2 % Eosinophils (%) (Auto) 4.0 % Basophils (%) (Auto) 0.8 % Neutrophils # (Auto) 4.2 TH/MM3 Lymphocytes # (Auto) 2.2 TH/MM3 Monocytes # (Auto) 0.5 TH/MM3 Eosinophils # (Auto) 0.3 TH/MM3 Basophils # (Auto) 0.1 TH/MM3 CBC Comment DIFF FINAL Differential Comment Phosphorus Level 2.1 MG/DL Test 10/20/16 06:00 Lactic Acid Level 0.8 mmol/L Assessment and Plan Assessment and Plan Syncope- with exertion VT-Angina- no further episodes on heparin, amio and metoprolol, -amio stopped for bradycardia -VT, weakness and nausea on exertion -cath in am HTN- controlled Anemia- chronic/life long 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
[2016-10-20] MEDS: ENALAPRIL MALEATE 10 MG TAB PO SCH ×2 (12:18→21:08)
[2016-10-20 12:31] LABS: APTT (PATIENT) 57.4 SEC (24.3-30.1)
--- NOTE | 2016-10-20 13:07 | EKG ---
Date Performed: 10/18/2016 Time Performed: 23:18:32 PTAGE: 70 years EKG: Atrial fibrillation with rapid ventricular response Left bundle branch block When compared to previous tracing, there is now evidence of Atrial fibrillation with a rapid ventricular response a nd left bundle Branch block. Abnormal ECG PREVIOUS TRACING : 07/22/2016 07.13 DOCTOR: Stevo Agudelo Interpretating Date/Time 10/20/2016 13:06:20
--- NOTE | 2016-10-20 13:08 | EKG ---
Date Performed: 10/19/2016 Time Performed: 06:15:44 PTAGE: 70 years EKG: Sinus rhythm with PVC(s) with borderline 1st degree A-V block. Prolonged QT interval Anterior T wave changes are nonspecific When compared to previous tracing, previously noted atrial Fibrillation is no longer pres ent. Borderline ECG PREVIOUS TRACING : 10/18/2016 23.18.32 DOCTOR: Stevo Agudelo Interpretating Date/Time 10/20/2016 13:08:17
--- NOTE | 2016-10-20 13:11 | EKG ---
Date Performed: 10/19/2016 Time Performed: 13:02:52 PTAGE: 70 years EKG: Sinus rhythm with borderline 1st degree A-V block. Prolonged QT interval Inferior and ant/septal T wave changes a re nonspecific When compared to previous tracing, minor ST changes are noted. Borderline ECG PREVIOUS TRACING : 10/19/2016 06.15 DOCTOR: Stevo Agudelo Interpretating Date/Time 10/20/2016 13:09:34
--- NOTE | 2016-10-20 13:12 | EKG ---
Date Performed: 10/19/2016 Time Performed: 17:12:40 PTAGE: 70 years EKG: Sinus rhythm . Left bundle branch block When compared to previous tracing, there is now an incomplete Left bundle branch block. Abnormal ECG PREVIOUS TRACING : 10/19/2016 13.02 DOCTOR: Stevo Agudelo Interpretating Date/Time 10/20/2016 13:10:32
[2016-10-20 14:27] LABS: ALKALINE PHOSPHATASE 87 U/L (45-117); ALT (GPT) 21 U/L (10-53); ANION GAP 13 MEQ/L (5-15); AST (GOT) 19 U/L (15-37); BICARBONATE 19.4 MEQ/L (21.0-32.0); BLOOD UREA NITROGEN 13 MG/DL (7-18); CHLORIDE 106 MEQ/L (98-107); GLOMERULAR FILTRATION RATE 50 ML/MIN (>89); LDL CHOLESTEROL 75 MG/DL (0-99); POTASSIUM 3.8 MEQ/L (3.5-5.1); SODIUM (NA) 138 MEQ/L (136-145); TOTAL BILIRUBIN ADULT 0.3 MG/DL (0.2-1.0)
[2016-10-20] MEDS: HEPARIN-D5W INJ 250 ML IV SCH (16:54)
[2016-10-20] MEDS ORDERED: MAGNESIUM SULFATE 1 GM PREMIX 100 ML IV ONE (18:30)
[2016-10-20] MEDS ORDERED: POTASSIUM CHLORIDE 20 MEQ CONTROLLED RELEASE TAB PO ONE (18:30)
--- NOTE | 2016-10-20 18:37 | HHI.PR ---
Subjective Remarks Late entry. Patient seen this morning around 11:30 AM. Is feeling all right. Denies any chest pain or shortness of breath. Denies any nausea or vomiting. Says she is ready for cardiac catheterization as planned by cardiology tomorrow. Objective Vital Signs Date Time Temp Pulse Resp B/P Pulse Ox O2 Delivery O2 Flow Rate FiO2 10/20/16 17:00 56 10/20/16 16:00 53 10/20/16 15:00 52 10/20/16 15:00 97.8 59 18 134/61 98 10/20/16 14:00 53 10/20/16 13:00 55 10/20/16 12:00 54 10/20/16 11:00 51 10/20/16 11:00 97.9 55 17 135/58 97 10/20/16 10:39 97 21 10/20/16 10:00 58 10/20/16 09:00 62 10/20/16 08:00 52 10/20/16 07:00 55 10/20/16 07:00 97.4 57 17 107/52 98 10/20/16 05:31 98.3 60 16 127/55 99 10/20/16 05:27 57 10/20/16 04:00 57 10/20/16 03:00 57 10/20/16 02:00 57 10/20/16 01:00 61 10/20/16 00:25 98.1 63 16 161/73 98 10/19/16 23:00 77 10/19/16 22:00 73 10/19/16 21:00 78 10/19/16 20:00 97.7 74 16 145/79 99 10/19/16 20:00 74 10/19/16 19:00 74 I/O 10/19/16 10/19/16 10/19/16 10/20/16 10/20/16 10/20/16 07:00 15:00 23:00 07:00 15:00 23:00 Intake Total 1200 ml 910 ml 240 ml 780 ml Output Total 1000 ml 1800 ml Balance 200 ml -890 ml 240 ml 780 ml Intake Oral 480 ml 240 ml 480 ml IV Total 1200 ml 430 ml 300 ml Output Urine Total 1000 ml 1800 ml Stool Total 0 ml # Voids 1 1 3 # Bowel Movements 1 0 Result Diagram: 10/20/16 0535 10/20/16 0535 Objective Remarks GENERAL: Patient sitting up on edge of bed. Appears comfortable. Alert and oriented 3. SKIN: Warm and dry. HEAD: Normocephalic. EYES: No scleral icterus. No injection or drainage. NECK: Supple, trachea midline. No JVD. CARDIOVASCULAR: Regular rate and rhythm without murmurs, gallops, or rubs. RESPIRATORY: Breath sounds equal bilaterally. No accessory muscle use. GASTROINTESTINAL: Abdomen soft, non-tender, nondistended. MUSCULOSKELETAL: No cyanosis, or edema. BACK: Nontender without obvious deformity. No CVA tenderness. A/P Assessment and Plan //Wide complex tachycardia -Appears to have resolved after amiodarone drip. Holding amiodarone subsequently due to bradycardia. -Troponins negative -Goal to Keep potassium greater than 4, magnesium greater than 2. -Echocardiogram ordered and pending. -Cardiology following. Appreciate assistance. Cardiac catheterization tomorrow. //History of hypertension. Blood pressure acceptable. Continue medications as ordered. Monitor blood pressure. -Holding hydrochlorothiazide. Continue amlodipine. //Dyslipidemia. Chronic. Continue statin //Tobaccoism-cessation counseling provided. Cessation strongly advised. //Diabetes mellitus. Chronic. -A1c ordered and pending. -Hold metformin and glipizide. -2/5. Glucose elevated in the 200s. Into new insulin sliding scale. Decrease diabetic diet 1800 lawanda. Start Levemir 5 units twice daily continue to monitor closely //Hypothyroidism. Chronic.Continue Levoxyl at 100 g by mouth daily. Check TSH //Acute kidney injury. Creatinine 1.3 on admission. Improving. -Follow renal function. //Leukocytosis. On admission. Possibly secondary to stress. Continue to monitor for signs of infection. //Normocytic anemia. Mild. Appears to be chronic. No signs of bleeding. Continue to monitor. //Hypokalemia. Replaced. Keep above 4.0 monitor. //Hypophosphatemia. Replace. Monitor. //Hypomagnesemia. Magnesium 1.3 on admission. Resolved after replacement. Monitor. //Depression/anxiety-chronic. Continue home medications. //Prophylaxis - GI - Pepcid - DVT - SCD/heparin Discharge Planning Physical therapy evaluation pending Expect patient may discharge home. When cleared by cardiology. Jabier Prado MD Oct 20, 2016 18:37
[2016-10-20] MEDS ORDERED: POTASSIUM PHOSPHATE INJ 15 MMOL in SODIUM CHLORIDE 0.9% INJ 150 ML IV ONE (20:00)
[2016-10-20] MEDS: INSULIN DETEMIR 100 UNITS/ML VIAL SQ SCH (21:00)
[2016-10-20] MEDS: ATORVASTATIN 40 MG TAB PO SCH (21:08)
[2016-10-20] MEDS: AMITRIPTYLINE HCL 50 MG TAB PO SCH (21:21)
[2016-10-21] VITALS (14 sets, daily range): BP systolic 129–141; BP diastolic 59–63; PULSE 54–73; RESP 18; TEMP 98.1–98.5; O2SAT 96–97
[2016-10-21] MEDS: CHLORHEXIDINE GLUCONATE 2 % 1 PACK (2 CLOTHS) TOP SCH (04:00)
[2016-10-21] MEDS: LEVOTHYROXINE SODIUM 100 MCG TAB PO SCH (04:57)
[2016-10-21] MEDS: ACETAMINOPHEN/HYDROcodone 325 MG/7.5 MG TAB PO PRN ×2 (04:58→16:32)
[2016-10-21 05:00] LABS: AUTOMATED NEUTROPHIL # 5.3 TH/MM3 (1.8-7.7); BASOPHIL # 0.1 TH/MM3 (0-0.2); BASOPHIL % 0.8 % (0.0-2.0); EOSINOPHIL # 0.4 TH/MM3 (0-0.4); HEMATOCRIT 32.3 % (35.0-46.0); HEMO FLAGS DIFF FINAL; LYMPHOCYTE # 2.7 TH/MM3 (1.0-4.8); MEAN CELL VOLUME 86.4 FL (80.0-100.0); MEAN CORPUSCULAR HEMOGLOBIN 28.8 PG (27.0-34.0); MEAN CORPUSCULAR HGB CONC 33.4 % (32.0-36.0); MONO % 6.9 % (0.0-8.0); NEUT % 58.3 % (16.0-70.0); PLATELET COUNT 242 TH/MM3 (150-450); RED BLOOD COUNT 3.75 MIL/MM3 (4.00-5.30); RED CELL DISTRIBUTION WIDTH 14.8 % (11.6-17.2); WHITE BLOOD COUNT 9.1 TH/MM3 (4.0-11.0)
[2016-10-21 05:14] LABS: APTT (PATIENT) 46.9 SEC (24.3-30.1)
[2016-10-21 05:25] LABS: MAGNESIUM 2.1 MG/DL (1.5-2.5); POTASSIUM 4.1 MEQ/L (3.5-5.1)
[2016-10-21] MEDS: INSULIN NovoLIN REGULAR SUPPLEMENTAL SCALE SQ SCH ×3 (07:00→16:00)
[2016-10-21] MEDS: SODIUM CHLOR 0.9% 1000 ML INJ 1,000 ML IV SCH (07:00)
[2016-10-21] MEDS: SODIUM CHLORIDE 0.9% FLUSH 5 ML FLUSH IV FLUSH SCH (08:07)
[2016-10-21] MEDS: DOCUSATE SODIUM 100 MG CAP PO SCH (08:07)
[2016-10-21] MEDS: ASPIRIN 325 MG TAB PO SCH (08:07)
[2016-10-21] MEDS: METOPROLOL TARTRATE 25 MG TAB PO SCH (08:08)
[2016-10-21] MEDS: FAMOTIDINE 20 MG TAB PO SCH (08:08)
[2016-10-21] MEDS: INSULIN DETEMIR 100 UNITS/ML VIAL SQ SCH (08:08)
[2016-10-21] MEDS: PANTOPRAZOLE SODIUM 40 MG VIAL IV SCH (08:08)
[2016-10-21] MEDS: ENALAPRIL MALEATE 10 MG TAB PO SCH (08:08)
[2016-10-21] MEDS ORDERED: HEPARIN-NS/PF INJ 500 ML ONE (08:22)
[2016-10-21] MEDS ORDERED: MIDAZOLAM HCL 2 MG/2 ML VIAL ONE (08:24)
[2016-10-21] MEDS ORDERED: diphenhydrAMINE HCL 50 MG/ML VIAL ONE (08:47)
[2016-10-21] MEDS ORDERED: SODIUM CHLOR 0.9% 1000 ML INJ 1,000 ML IV SCH (09:10)
[2016-10-21] MEDS ORDERED: METOCLOPRAMIDE HCL 10 MG/2 ML VIAL IV PRN (09:15)
[2016-10-21] MEDS ORDERED: ATROPINE SULFATE 1 MG/ML VIAL IV PRN (09:15)
[2016-10-21] MEDS ORDERED: LIDOCAINE HCL 1% 50 ML VIAL INFIL PRN (09:15)
[2016-10-21] MEDS ORDERED: LORazepam 2 MG/ML VIAL IV PRN (09:15)
[2016-10-21] MEDS ORDERED: SODIUM CHLOR 0.9% 250 ML INJ 250 ML IV PRN (09:15)
[2016-10-21] MEDS ORDERED: ONDANSETRON HCL 4 MG/2 ML VIAL IV PRN (09:15)
[2016-10-21] MEDS ORDERED: BACITRACIN OINT 0.9 GM PKT TOP ONE (09:15)
[2016-10-21] MEDS ORDERED: SODIUM CHLORIDE 0.9% FLUSH 5 ML FLUSH IVF PRN (09:15)
[2016-10-21] MEDS ORDERED: MISC INFORMATION XX ONE (09:15)
--- NOTE | 2016-10-21 09:44 | MA ---
cc: MELISSA BRODERICK MD DATE 10/21/2016 INDICATION VT/angina. PROCEDURE Left heart catheterization, selective coronary angiography, left ventriculography. DETAILS OF THE PROCEDURE The patient was given informed consent. She was prepped in the usual sterile fashion. A subcutaneous injection of lidocaine was made in the right inguinal area. Access was achieved into the right femoral artery and a 4-Malagasy sheath was inserted. A JL-4 and 3DRC were utilized to engage the left and right coronary arteries. Angiograms were obtained in multiple views and projections. An angled 4-Malagasy pigtail catheter was utilized for the left ventriculogram and hemodynamics. The patient tolerated the procedure well and was pain-free at the end of the case. FINDINGS LEFT VENTRICULOGRAM - This shows an EF of 50%. There are no focal wall motion abnormalities. Left ventricular pressure 164/22 mmHg. Aortic pressure 164/62 mmHg. CORONARY ANATOMY Left Main - This vessel is angiographically patent and gives rise to an LAD and circumflex. LAD - This vessel is widely patent and gives rise to an early first diagonal that is also widely patent. Both vessels taper down quickly and are relatively small or atrophic, being about 1.4 mm at the midvessel. They are also severely tortuous. Circumflex - This is a smaller nondominant vessel that is free of any significant disease. RCA - This is a dominant vessel that is free of any significant disease but also fairly tortuous with a lai's hook takeoff. IMPRESSIONS 1. Low-normal LV function. 1. No coronary artery disease, however, vessels are quite small and very tortuous. Jennie Will /9:10 AM /9:37 AM
--- NOTE | 2016-10-21 11:54 | EKG ---
Date Performed: 10/20/2016 Time Performed: 10:27:40 PTAGE: 70 years EKG: SINUS BRADYCARDIA WITH FIRST DEGREE AV BLOCK ANTEROSEPTAL MYOCARDIAL INFARCTION , OF INDETE RMINATE AGE ABNORMAL ECG PREVIOUS TRACING : 10/19/2016 17.12 DOCTOR: Hansel Friedman Interpretating Date/Time 10/21/2016 11:48:50
[2016-10-21 13:21] LABS: HEMOGLOBIN A1a 1.1 %; HEMOGLOBIN A1b 2.6 %; HEMOGLOBIN Ao 79.6 %; HEMOGLOBIN LA1C 2.1 %; HEMOGLOBIN P3 4.5 %
[2016-10-21] MEDS ORDERED: IODIXANOL 320 MG/ML 100 ML VIAL (for Cath Lab) OTHER ONE (13:26)
[2016-10-21] MEDS ORDERED: METOPROLOL TARTRATE 25 MG TAB PO ONE (15:45)
[2016-10-21] MEDS ORDERED: HYDR25TA5 PO (15:46)
[2016-10-21] MEDS ORDERED: FAMO20TA2 PO (15:46)
[2016-10-21] MEDS ORDERED: METO25TA3 PO (15:54)
[2016-10-21] MEDS ORDERED: GLIP5TAB8 PO (15:54)
[2016-10-21] MEDS ORDERED: MAGN400T2 PO (15:57)
--- NOTE | 2016-10-21 19:01 | EC ---
Study Study Date:10/21/2016 STUDY CONCLUSIONS SUMMARY - Left ventricle: The cavity size was normal. Wall thickness was normal. Systolic function was mildly reduced. The estimated ejection fraction was in the range of 45% to 50%. Wall motion was normal; there were no regional wall motion abnormalities. - Ventricular septum: Septal motion showed abnormal function. These changes are consistent with a left bundle branch block. - Mitral valve: Mildly calcified annulus. - Pulmonary arteries: PA peak pressure: 42mm Hg (S). If LV function is below 40, please consider prescribing an ACEI or ARB or document rationale for non-use. PROCEDURE DATA STUDY STATUS: Elective. Procedure: Transthoracic echocardiography. Image quality was suboptimal. Scanning was performed from the parasternal, apical, and subcostal acoustic windows. Study completion: The patient tolerated the procedure well. Transthoracic echocardiography. M-mode, complete 2D, complete spectral Doppler, and color Doppler. Patient status: Inpatient. CARDIAC ANATOMY LEFT VENTRICLE: The cavity size was normal. Wall thickness was normal. Systolic function was mildly reduced. The estimated ejection fraction was in the range of 45% to 50%. Wall motion was normal; there were no regional wall motion abnormalities. AORTIC VALVE: Trileaflet; normal thickness leaflets. Doppler: Transvalvular velocity was within the normal range. There was no stenosis. No regurgitation. AORTA: Aortic root: The aortic root was normal in size. MITRAL VALVE: Mildly calcified annulus. Doppler: Transvalvular velocity was within the normal range. There was no evidence for stenosis. Trace regurgitation. LEFT ATRIUM: The atrium was normal in size. RIGHT VENTRICLE: The cavity size was normal. Wall thickness was normal. VENTRICULAR SEPTUM: Septal motion showed abnormal function. These changes are consistent with a left bundle branch block. PULMONIC VALVE: Doppler: Transvalvular velocity was within the normal range. There was no evidence for stenosis. No regurgitation. TRICUSPID VALVE: Structurally normal valve. Doppler: Transvalvular velocity was within the normal range. Trace regurgitation. PULMONARY ARTERY: The main pulmonary artery was normal-sized. Systolic pressure was within the normal range. RIGHT ATRIUM: The atrium was normal in size. PERICARDIUM: There was no pericardial effusion. SYSTEMIC VEINS: Inferior vena cava: The vessel was normal in size. BASIC MEASUREMENTS ADULT NORMAL Left ventricle LV internal dimension, ED, chordal level, *37 mm 43-52 PLAX LV internal dimension, ES, chordal level, 31.7 mm 23-38 PLAX Fractional shortening, chordal level, PLAX *14 % >29 LV posterior wall thickness, ED 8.29 mm IVS/LVPW ratio, ED 1.11 <1.3 Ventricular septum Septal thickness, ED 9.19 mm Aortic valve Leaflet separation 18 mm 15-26 Right ventricle RV internal dimension, ED, PLAX 20.8 mm 19-38 BASIC MEASUREMENTS ADULT NORMAL Aortic valve Leaflet separation 18 mm 15-26 Aorta Root diameter, ED 29 mm 20-37 Left atrium Anterior-posterior dimension, ES 30 mm 19-40 LA/aortic root ratio 1.03 DOPPLER MEASUREMENTS ADULT NORMAL Main pulmonary artery Pressure, S *42 mm Hg =30 Mitral valve Peak E-wave velocity 57.3 cm/s Peak A-wave velocity 55.3 cm/s Peak E/A ratio 1 Tricuspid valve Regurgitant peak velocity 284 cm/s Peak RV-RA gradient, S 32 mm Hg Maximal regurgitant velocity 284 cm/s Systemic veins Estimated CVP 10 mm Hg Right ventricle RV pressure, S *42 mm Hg <30 LEGEND: Mean values are shown as u=mean value. Asterisk (*) sterling values outside specified normal range. Prepared and signed by Thomas Gibson [id number]
[2016-10-21] MEDS ORDERED: SODIUM CHLORIDE 0.9% FLUSH 5 ML FLUSH IVF SCH (21:00)
--- NOTE | 2016-10-22 06:44 | HHI.PR ---
Subjective Remarks Date of service 10/21/16. Patient seen the morning of 10/21/16 Patient says she feels well. Denies any chest pain or shortness of breath. She feels like going home. Discussed with cardiology. Patient stable for discharge home. Objective Vital Signs Date Time Temp Pulse Resp B/P Pulse Ox O2 Delivery O2 Flow Rate FiO2 10/21/16 18:00 60 10/21/16 17:00 59 10/21/16 16:00 55 10/21/16 15:00 98.4 61 18 137/62 96 10/21/16 15:00 73 10/21/16 14:00 66 10/21/16 13:00 65 10/21/16 12:00 57 10/21/16 11:00 98.5 57 18 141/63 96 10/21/16 11:00 64 10/21/16 10:00 58 10/21/16 08:00 54 10/21/16 07:15 98.4 56 18 129/59 97 10/21/16 07:15 54 I/O 10/21/16 10/21/16 10/21/16 10/22/16 10/22/16 10/22/16 07:00 15:00 23:00 07:00 15:00 23:00 Intake Total 871 ml 600 ml Balance 871 ml 600 ml Intake Oral 420 ml 600 ml IV Total 451 ml # Voids 3 4 # Bowel Movements 0 Result Diagram: 10/21/16 0448 10/21/16 0448 Objective Remarks GENERAL: Patient sitting up in chair. Appears comfortable. Alert and oriented 3. SKIN: Warm and dry. HEAD: Normocephalic. EYES: No scleral icterus. No injection or drainage. NECK: Supple, trachea midline. No JVD. CARDIOVASCULAR: Regular rate and rhythm without murmurs, gallops, or rubs. RESPIRATORY: Breath sounds equal bilaterally. No accessory muscle use. GASTROINTESTINAL: Abdomen soft, non-tender, nondistended. MUSCULOSKELETAL: No cyanosis, or edema. BACK: Nontender without obvious deformity. No CVA tenderness. A/P Assessment and Plan //Wide complex tachycardia -Appears to have resolved after amiodarone drip. Holding amiodarone subsequently due to bradycardia. -Troponins negative -Goal to Keep potassium greater than 4, magnesium greater than 2. -Echocardiogram ordered and pending. -Cardiology following. Appreciate assistance. Cardiac catheterization without significant coronary artery disease - //History of hypertension. Blood pressure acceptable. Continue medications as ordered. Monitor blood pressure. -Can restart hydrochlorothiazide at lower dose. Continue amlodipine. //Dyslipidemia. Chronic. Continue statin //Tobaccoism-cessation counseling provided. Cessation strongly advised. //Diabetes mellitus. Chronic. -A1c 9.6. -Hold metformin and glipizide. -10/20. Glucose elevated in the 200s. Into new insulin sliding scale. Decrease diabetic diet 1800 lawanda. Start Levemir 5 units twice daily continue to monitor closely -10/21. We will increase glipizide to 10 mg twice daily. Patient will need to follow-up with primary care for further treatment of her diabetes. //Hypothyroidism. Chronic.Continue Levoxyl at 100 g by mouth daily. Check TSH //Acute kidney injury. Creatinine 1.3 on admission. Improved. -Follow up with primary care. //Leukocytosis. On admission. Possibly secondary to stress. Continue to monitor for signs of infection. //Normocytic anemia. Mild. Appears to be chronic. No signs of bleeding. Continue to monitor. //Hypokalemia. Resolved after replacement. Likely secondary to hypomagnesemia. Keep above 4.0 monitor. //Hypophosphatemia. Resolved after replacement. Monitor. //Hypomagnesemia. Magnesium 1.3 on admission. Resolved after replacement. Sent home with magnesium daily supplement. //Depression/anxiety-chronic. Continue home medications. //Prophylaxis - GI - Pepcid - DVT - SCD/heparin Discharge Planning -cleared by cardiology for discharge. Discharge home. Follow up cardiology in 2 weeks.. Jabier Prado MD Oct 22, 2016 06:44
--- NOTE | 2016-10-22 06:46 | HHI.DS ---
Discharge Summary Admission Date Oct 19, 2016 at 00:47 Discharge Date: Oct 21, 2016 Admitting Diagnosis Syncope secondary to arrhythmia, nonsustained Vtach, hypomagnesemia (1) Wide-complex tachycardia ICD Code: I47.2 Diagnosis: Principal (2) Low magnesium level ICD Code: R79.0 Diagnosis: Principal (3) Leukocytosis ICD Code: D72.829 Diagnosis: Principal (4) Normocytic anemia ICD Code: D64.9 Diagnosis: Principal (5) Diabetes mellitus ICD Code: E11.9 Diagnosis: Principal (6) Hard of hearing ICD Code: H91.90 Diagnosis: Principal (7) Dyslipidemia ICD Code: E78.5 Diagnosis: Principal (8) Hypothyroidism ICD Code: E03.9 Diagnosis: Principal (9) OAB (overactive bladder) ICD Code: N32.81 Diagnosis: Principal (10) Primary localized osteoarthrosis, lower leg ICD Code: M17.10 Diagnosis: Principal Procedures cardiac catheterization. Please see report. Brief History - From Admission 70yo F. Admission 10/19/2016. Past medical history includes tachycardia, HTN, DM, hypothyroidism, depression, osteoarthritis with recent left knee replacement (no longer on eliquis) presents to [facility] ED this is a third fourth episode for this patient where she becomes "flush" and feels that the world is spinning. Upon arrival she was instructed to desk monitor and was noted to have a white count was tachycardia with a rate in the low 200s in between sinus tach at low 110s. Pt feels warm when she is in Vtach and feels better after once back in sinus tachycardia. Discussed with Dr. Tpaia and she agree with amiodarone drip. Pt given amiodarone bolus and then drip and Vtach has decreased to couplets she was noted to have a leukocytosis of 12,000. Anemia 11. Magnesium 1.2. Potassium is slightly low. TSH pending. These all been replaced and have normalized. She was intermittently in a wide complex tachycardia from 2300 until 0200. She has since been in normal sinus rhythm. Denies any chest pain, shortness of breath. CBC/BMP: 10/21/16 0448 10/21/16 0448 Significant Findings Laboratory Tests Test 10/19/16 10/19/16 10/19/16 10/20/16 12:57 14:46 22:11 05:35 Troponin I LESS THAN 0.02 NG/ML (0.02-0.05) Albumin 2.9 GM/DL 3.0 GM/DL (3.4-5.0) (3.4-5.0) White Blood Count 11.6 TH/MM3 (4.0-11.0) Red Blood Count 3.99 MIL/MM3 3.51 MIL/MM3 (4.00-5.30) (4.00-5.30) Hematocrit 34.4 % 30.1 % (35.0-46.0) (35.0-46.0) Activated Partial 30.2 SEC 55.6 SEC Thromboplast Time (24.3-30.1) (24.3-30.1) Hemoglobin 10.1 GM/DL (11.6-15.3) Prothrombin Time 11.9 SEC (9.8-11.6) Carbon Dioxide Level 19.4 MEQ/L (21.0-32.0) Creatinine 1.09 MG/DL (0.50-1.00) Estimat Glomerular Filtration 50 ML/MIN (>89) Rate Random Glucose 134 MG/DL (74-106) Calcium Level 8.4 MG/DL (8.5-10.1) Phosphorus Level 2.1 MG/DL (2.5-4.9) Total Protein 6.3 GM/DL (6.4-8.2) HDL Cholesterol 37.0 MG/DL (40.0-60.0) Hemoglobin A1c 9.6 % (4.3-6.0) Test 10/20/16 10/21/16 11:53 04:48 Activated Partial 57.4 SEC 46.9 SEC Thromboplast Time (24.3-30.1) (24.3-30.1) Red Blood Count 3.75 MIL/MM3 (4.00-5.30) Hemoglobin 10.8 GM/DL (11.6-15.3) Hematocrit 32.3 % (35.0-46.0) Chloride Level 108 MEQ/L (98-107) Creatinine 1.19 MG/DL (0.50-1.00) Estimat Glomerular Filtration 45 ML/MIN (>89) Rate Albumin 3.1 GM/DL (3.4-5.0) Imaging Last Impressions Pelvis X-Ray 10/19/16 0000 Signed Impressions: Service Date/Time: Wednesday, October 19, 2016 02:50 - CONCLUSION: No acute pelvis abnormality is identified. The bones are undermineralized. There is degenerative disc disease in the in inferior lumbar spine. Gregory Clancy MD Carotid Artery Ultrasound 10/19/16 0000 Signed Impressions: Service Date/Time: Wednesday, October 19, 2016 12:13 - CONCLUSION: There is an approximate 50-60%% stenosis of the right internal carotid. No hemodynamically significant stenosis in left carotid artery. Jose Pedraza MD Head CT [id number]/18/162350 Signed Impressions: Service Date/Time: Wednesday, October 19, 2016 00:59 - CONCLUSION: 1. No acute intracranial abnormality is identified. 2. Air-fluid level in the right maxillary sinus. This could indicate acute sinus disease. Gregory Clancy MD Chest X-Ray 10/18/162350 Signed Impressions: Service Date/Time: Wednesday, October 19, 2016 00:01 - CONCLUSION: No acute cardiopulmonary abnormality is identified. Gregory Clancy MD Hospital Course Patient was ruled out with EKG and troponins negative 3. Was treated for ventricular tachycardia with amiodarone drip, subsequently metoprolol. Magnesium was 1.3 on admission, and replaced. Potassium low, and replaced as well. Stable after replacement. Patient underwent cardiac catheterization which showed no significant coronary artery disease. Heart rate remained stable in the 50s, 60s, and patient was discharged home. Glucose is found to be elevated, A1c 9.6. She'll be discharged on increased dose of glipizide, and we'll need to follow-up with primary care. For problem-based summary from most recent progress note, please see below. //Wide complex tachycardia -Appears to have resolved after amiodarone drip. Holding amiodarone subsequently due to bradycardia. -Troponins negative -Goal to Keep potassium greater than 4, magnesium greater than 2. -Echocardiogram ordered and pending. -Cardiology following. Appreciate assistance. Cardiac catheterization without significant coronary artery disease - //History of hypertension. Blood pressure acceptable. Continue medications as ordered. Monitor blood pressure. -Can restart hydrochlorothiazide at lower dose. Continue amlodipine. //Dyslipidemia. Chronic. Continue statin //Tobaccoism-cessation counseling provided. Cessation strongly advised. //Diabetes mellitus. Chronic. -A1c 9.6. -Hold metformin and glipizide. -10/20. Glucose elevated in the 200s. Into new insulin sliding scale. Decrease diabetic diet 1800 lawanda. Start Levemir 5 units twice daily continue to monitor closely -10/21. We will increase glipizide to 10 mg twice daily. Patient will need to follow-up with primary care for further treatment of her diabetes. //Hypothyroidism. Chronic.Continue Levoxyl at 100 g by mouth daily. Check TSH //Acute kidney injury. Creatinine 1.3 on admission. Improved. -Follow up with primary care. //Leukocytosis. On admission. Possibly secondary to stress. Continue to monitor for signs of infection. //Normocytic anemia. Mild. Appears to be chronic. No signs of bleeding. Continue to monitor. //Hypokalemia. Resolved after replacement. Likely secondary to hypomagnesemia. Keep above 4.0 monitor. //Hypophosphatemia. Resolved after replacement. Monitor. //Hypomagnesemia. Magnesium 1.3 on admission. Resolved after replacement. Sent home with magnesium daily supplement. //Depression/anxiety-chronic. Continue home medications. //Prophylaxis - GI - Pepcid - DVT - SCD/heparin Pt Condition on Discharge: Good Discharge Disposition: Discharge Home Discharge Time: > 30 minutes Discharge Instructions DIET: Follow Instructions for: Diabetic Diet Activities you can perform: Regular-No Restrictions Follow up Referrals: Cardiology - 2 Weeks with Arlene Fay MD PCP Follow-up - 1 Week New Medications: Magnesium Oxide (Magnesium Oxide) 400 Mg Tab 400 MG PO DAILY Nutritional Supplement #30 Ref 0 TAB Famotidine (Famotidine) 20 Mg Tab 10 MG PO Q12HR Reflux #30 TAB Metoprolol Tartrate (Metoprolol Tartrate) 25 Mg Tab 25 MG PO Q12HR HEART #30 TAB Changed Medications: Glipizide (Glipizide) 5 Mg Tab 10 MG PO BIDAC Take 30 minutes before a meal Blood Sugar Management #60 Ref 0 TAB (Changed from: 5 MG) Hydrochlorothiazide (Hydrochlorothiazide) 25 Mg Tab 12.5 MG PO DAILY Blood Pressure Management #30 Ref 0 TAB (Changed from: 25 MG) Continued Medications: Amitriptyline (Amitriptyline) 50 Mg Tab 50 MG PO HS Control Depression #30 Ref 0 TAB Amlodipine (Amlodipine) 10 Mg Tab 10 MG PO DAILY Blood Pressure Management #30 Ref 0 TAB Enalapril (Enalapril) 20 Mg Tab 20 MG PO DAILY #30 Ref 0 TAB Levothyroxine (Levothyroxine) 100 Mcg Tab 100 MCG PO DAILY Thyroid #30 Ref 0 TAB Medroxyprogesterone Acetate (Medroxyprogesterone Acetate) 2.5 Mg Tab 2.5 MG PO Start day 21 PRN Control Mood Swing #5 Ref 0 TAB Metformin ER (Metformin ER) 500 Mg Elan 500 MG PO TID With evening meal Blood Sugar Management Ref 0 TAB Mirabegron (Myrbetriq) 25 Mg Tab 25 MG PO DAILY Urinary Symptom Managemen #30 Ref 0 TAB Discontinued Medications: Meloxicam (Meloxicam) 15 Mg Tab 15 MG PO DAILY Arthritis Pain #30 Ref 0 TAB Jabier Prado MD Oct 22, 2016 06:46
[2016-10-22] MEDS ORDERED: METOPROLOL TARTRATE 25 MG TAB PO SCH (09:00)
== END 2016-10-21 19:30 | disposition home or self-care (01) | DRG 287 ==
LOC: PHED 23:08 → PHEDA 10-19 00:47 → PHICU 10-19 04:52 → HCIS 10-19 17:51 → HCPC 10-19 18:30
PROVIDERS: ADMIT Internal Medicine; ATTEND Internal Medicine
PROC: B2111ZZ Fluoroscopy of Multiple Coronary Arteries using Low Osmolar Contrast (ICD-10-PCS; 2016-10-21)
PROC: B2151ZZ Fluoroscopy of Left Heart using Low Osmolar Contrast (ICD-10-PCS; 2016-10-21)
PROC: 4A023N7 Measurement of Cardiac Sampling and Pressure, Left Heart, Percutaneous Approach (ICD-10-PCS; principal; 2016-10-21 10:00)
DX: I47.2 Ventricular tachycardia (principal); N17.9 Acute kidney failure, unspecified; E83.42 Hypomagnesemia; N32.81 Overactive bladder; E83.39 Other disorders of phosphorus metabolism; I10 Essential (primary) hypertension; D64.9 Anemia, unspecified; E11.9 Type 2 diabetes mellitus without complications; E03.9 Hypothyroidism, unspecified; D72.829 Elevated white blood cell count, unspecified; H91.90 Unspecified hearing loss, unspecified ear; E78.5 Hyperlipidemia, unspecified; M17.10 Unilateral primary osteoarthritis, unspecified knee; E87.6 Hypokalemia; I20.9 Angina pectoris, unspecified; M51.36 Other intervertebral disc degeneration, lumbar region; F17.200 Nicotine dependence, unspecified, uncomplicated; F41.8 Other specified anxiety disorders; Z79.899 Other long term (current) drug therapy; Z96.641 Presence of right artificial hip joint; Z96.652 Presence of left artificial knee joint
CPT/HCPCS: 70450; 71010; 72170; 80048; 80053; 80061; 80069; 80076; 81001; 82550; 82552; 82948; 83036; 83605; 83735; 84100; 84443; 84484; 85025; 85027; 85610; 85730; 87641; 93005; 93306; 93458; 93880; 94150; 96361; 96365; 96375; C1769; C1893; C9113; J0282; J1200; J1644; J2250; J2405; J3010; J3475; J7030; J7060; Q9967